=== PATIENT | male | born 1990 ===

== ENCOUNTER 2017-03-23 18:30 | Emergency (ER) | payer OTHER ==
[2017-03-23 18:39] VITALS: RESP 18
--- NOTE | 2017-03-23 20:19 | C.PDOC ---
History Of Present Illness Patient is a 27 year old male who presents complaining of dizziness and palpitations over the past few weeks, which occasionally wakes him from sleeping. States he quit smoking a few weeks ago and has been attempting to eat healthier. He denies any chest pain, shortness of breath, fever, chills, nausea , or vomiting. Patient speaking in complete sentences. Time Seen by Provider: 03/23/17 20:18 Chief Complaint (Nursing): Dizziness/Lightheaded History Per: Patient History/Exam Limitations: no limitations Onset/Duration Of Symptoms: Days Current Symptoms Are (Timing): Still Present Activity At Onset Of Symptoms: Lying Associated Symptoms Preceding Syncopal Episode: No Predromal Symptoms (Sudden Onset) Seizure Or Post-ictal Symptoms: None Fall Associated With With Symptoms: No Severity: Moderate Pain Scale Rating Of: 4 Recent travel outside of the [place]: No - Symptoms Of CVA Recent Aspirin Use: No Current Coumadin Use?: No Recent Head Trauma: No Past Medical History Reviewed: Historical Data, Nursing Documentation, Vital Signs Vital Signs: Last Vital Signs Temp 98.5 F 03/23/17 23:02 Pulse 83 03/23/17 23:02 Resp 18 03/23/17 23:02 BP 122/80 03/23/17 23:02 Pulse Ox 100 03/23/17 23:02 - Medical History PMH: No Chronic Diseases Surgical History: No Surg Hx Family History: States: No Known Family Hx - Social History Hx Alcohol Use: No Hx Substance Use: Yes - Immunization History Hx Tetanus Toxoid Vaccination: Yes (5 YEARS) Hx Influenza Vaccination: No Hx Pneumococcal Vaccination: No Review Of Systems Constitutional: Negative for: Fever, Chills Cardiovascular: Positive for: Palpitations. Negative for: Chest Pain Respiratory: Negative for: Shortness of Breath Gastrointestinal: Negative for: Nausea, Vomiting Neurological: Positive for: Dizziness. Negative for: Weakness, Headache Physical Exam - Physical Exam Appears: Non-toxic, No Acute Distress Skin: Warm, Dry Head: Normacephalic Eye(s): bilateral: Normal Inspection Oral Mucosa: Moist Throat: No Erythema Neck: Trachea Midline, Supple Chest: Symmetrical, No Tenderness Cardiovascular: Rhythm Regular Respiratory: No Rales, No Rhonchi, No Wheezing Gastrointestinal/Abdominal: Soft, No Tenderness, No Distention Back: Normal Inspection Extremity: Normal ROM Extremity: Bilateral: Atraumatic Neurological/Psych: Oriented x3, Normal Speech Gait: Steady ED Course And Treatment - Laboratory Results Result Diagrams: 03/23/17 21:10 03/23/17 21:10 ECG: Interpreted By Me, Viewed By Me ECG Rhythm: Sinus Rhythm (73), Nonspecific Changes O2 Sat by Pulse Oximetry: 99 (RA) Pulse Ox Interpretation: Normal - Radiology CXR: Interpreted by Me, Viewed By Me CXR Interpretation: No: Infiltrates, Fracture, Pnemothorax Progress Note: Will work up with EKG, blood work with cardiac enzymes, UDS, and UA. Reevaluation Time: 23:04 Reassessment Condition: Improved Disposition Counseled Patient/Family Regarding: Studies Performed, Diagnosis, Need For Followup - Disposition Referrals: [facility] at [facility] [Outside] [facility] [Outside] Disposition: HOME/ ROUTINE Disposition Time: 20:19 Condition: FAIR Instructions: Palpitations (ED) Forms: [employer] (Persian) - Clinical Impression Clinical Impression: Palpitations - Scribe Statement The provider has reviewed the documentation as recorded by the Scribe (Maryjane Griggs) Provider Attestation: All medical record entries made by the Scribe were at my direction and personally dictated by me. I have reviewed the chart and agree that the record accurately reflects my personal performance of the history, physical exam, medical decision making, and the department course for this patient. I have also personally directed, reviewed, and agree with the discharge instructions and disposition.
[2017-03-23 21:15] LABS: BASO # 0.1 K/uL (0.0-0.2); EOS # 0.1 K/uL (0.0-0.7); EOS % 1.3 % (0.0-4.0); HEMOGLOBIN 15.9 g/dL (12.0-18.0); LYMPH # 2.4 K/uL (1.0-4.3); MEAN CELL VOLUME 88.6 fL (80.0-94.0); MEAN CORPUSCULAR HEMOGLOBIN 30.3 pg (27.0-31.0); MEAN CORPUSCULAR HGB CONC 34.2 g/dL (33.0-37.0); MEAN PLATELET VOLUME 9.5 fL (7.2-11.7); MONO # 0.6 K/uL (0.0-0.8); MONO % 5.9 % (0.0-10.0); NEUT # 7.5 K/uL (1.8-7.0); NEUT % 69.8 % (50.0-75.0); RBC 5.24 Mil/uL (4.40-5.90); RED CELL DISTRIBUTION WIDTH 13.2 % (11.5-14.5); WHITE BLOOD COUNT 10.8 K/uL (4.8-10.8)
[2017-03-23 21:25] LABS: INR 1.2
[2017-03-23 21:26] LABS: ALB/GLOB RATIO 1.2 (1.0-2.1); ALBUMIN 4.6 g/dL (3.5-5.0); ALT/SGPT 72 U/L (21-72); AST/SGOT 23 U/L (17-59); BLOOD UREA NITROGEN 10 mg/dL (9-20); CALCIUM 9.2 mg/dl (8.6-10.4); GFR AFRICAN-AMERICAN > 60; GFR NON-AFRICAN AMERICAN > 60
[2017-03-23 21:48] LABS: URINE BILIRUBIN NEGATIVE (NEGATIVE); URINE CLARITY Clear (Clear); URINE COLOR Straw (YELLOW); URINE GLUCOSE (UA) NORMAL (Normal); URINE LEUKOCYTE ESTERASE NEG Leu/uL (Negative); URINE PROTEIN NEGATIVE (NEGATIVE); URINE UROBILINOGEN NORMAL mg/dL (0.2-1.0)
[2017-03-23 21:51] LABS: URINE BLOOD NEGATIVE (NEGATIVE)
[2017-03-23 22:12] LABS: BARBITURATES, UR NEGATIVE (NEGATIVE); BENZODIAZEPINES, UR NEGATIVE (NEGATIVE); OPIATES, UR NEGATIVE (NEGATIVE); PHENCYCLIDINE, UR NEGATIVE (NEGATIVE)
[2017-03-23 23:03] VITALS: BP 122/80; PULSE 83; TEMP 98.5
[2017-03-23 23:05] VITALS: O2SAT 99
--- NOTE | 2017-03-24 08:44 | RAD ---
Chest x-ray two views History: Palpitations. Comparison: None available. Findings: No focal infiltrate or effusion. Heart size within normal limits. Impression: No focal infiltrate or effusion.
--- NOTE | 2017-03-26 12:26 | CARD ---
APPROVED REPORT EKG Measurement Heart [id number] NC 164P46 [id number] <Conclusion> Normal sinus rhythm Normal ECG
== END 2017-03-23 23:12 | disposition home or self-care (01) ==
LOC: C.ER 18:30
DX: R00.2 Palpitations (principal)

== ENCOUNTER 2017-05-19 11:13 | Emergency (ER) | payer SELFPAY ==
[2017-05-19 11:20] VITALS: TEMP 98.1; O2SAT 100
--- NOTE | 2017-05-19 11:23 | PCM.RRT ---
LIGHTING ADVISER Nurses Assessment - Situation Date: 05/19/17 Time LIGHTING ADVISER was called: 10:52 LIGHTING ADVISER Responder Arrival Time:: 10:54 LIGHTING ADVISER Location:: Laboratory (phlebotomy) LIGHTING ADVISER Reason for Call: Looks Sicker (dizziness) - Vital Signs Vital Signs: BP: 102/72 HR: 64 Glucose: 98 - Time LIGHTING ADVISER Ended Time LIGHTING ADVISER Ended: 11:00 I.Reason for LIGHTING ADVISER - A) Acute Change in Patient: (Select all that apply): Staff member or family is worried about patient - Neurological Status (Select all that apply): Alert, Responsive, Oriented, Verbal, Follows Commands - Constitutional Appears: No Acute Distress - Head Head Exam: ATRAUMATIC, NORMOCEPHALIC - Eyes Eye Exam: EOMI, Normal appearance - Respiratory Exam Respiratory Exam: Clear to Ausculation Bilateral. absent: Rales, Rhonchi, Wheezes - Cardiovascular Exam Cardiovascular Exam: REGULAR RHYTHM, +S1, +S2 - GI/Abdominal Exam GI & Abdominal Exam: Soft, Normal Bowel Sounds. absent: Tenderness - Neurological Exam Neurological Exam: Alert, Awake, CN II-XII Intact, Oriented x3 - Extremities Exam Extremities Exam: absent: Pedal Edema Plan - Assessment of Findings&Treatment Plan Rapid response called for this 27 year old male with history of HTN. Patient was getting blood drawn when he felt dizzy and pale. He was given some juice and felt better. Patient was transferred to the emergency department.
[2017-05-19] MEDS ORDERED: Sodium Chloride 0.9% 1,000 ML IV ONE (11:30)
--- NOTE | 2017-05-19 11:37 | C.PDOC ---
History Of Present Illness 27 yo male w/PMHx of HTN was brought from outpatient lab after had vasovagal episode, while drawing blood. Pts ts, " felt dizzy, diaphoretic, nausea, while she was drawing my blood". At present time, pt reports feeling much better. Otherwise, pt denies syncope, headache, visual changes, focal deficits, CP, SOB , dyspnea, palpitation, abd. pain, V/D, UTI sx. A the time of evaluation, pt appears comfortable, not in nay apparent distress. Time Seen by Provider: 05/19/17 11:20 Chief Complaint (Nursing): Dizziness/Lightheaded History Per: Patient Past Medical History Reviewed: Historical Data, Nursing Documentation, Vital Signs Vital Signs: Last Vital Signs Temp 98.1 F 05/19/17 11:19 Pulse 59 L 05/19/17 11:19 Resp 20 05/19/17 11:19 BP 119/69 05/19/17 11:19 Pulse Ox 100 05/19/17 13:03 - Medical History PMH: HTN Family History: States: No Known Family Hx - Social History Hx Tobacco Use: No Hx Alcohol Use: No Hx Substance Use: Yes - Immunization History Hx Tetanus Toxoid Vaccination: Yes (5 YEARS) Hx Influenza Vaccination: No Hx Pneumococcal Vaccination: No Review Of Systems Except As Marked, All Systems Reviewed And Found Negative. Constitutional: Negative for: Fever, Chills Eyes: Negative for: Vision Change ENT: Negative for: Ear Discharge, Nose Discharge, Throat Pain, Throat Swelling Cardiovascular: Negative for: Chest Pain, Palpitations Respiratory: Negative for: Cough, Shortness of Breath, Wheezing Gastrointestinal: Negative for: Nausea, Vomiting, Abdominal Pain Genitourinary: Negative for: Dysuria Musculoskeletal: Negative for: Neck Pain, Back Pain Skin: Negative for: Rash Neurological: Positive for: Dizziness. Negative for: Weakness, Numbness, Altered Mental Status, Headache Physical Exam - Physical Exam Appears: Well, Non-toxic, No Acute Distress Skin: Normal Color, Warm, Dry, No Rash Head: Normacephalic Eye(s): bilateral: PERRL Nose: No Flaring, No Discharge Oral Mucosa: Moist, No Drooling Throat: No Drooling Neck: Trachea Midline, Supple Cardiovascular: Rhythm Regular, No Friction Rub, No Murmur, No JVD, Other ((-) carotid bruits B/L) Respiratory: No Decreased Breath Sounds, No Accessory Muscle Use, No Stridor, No Wheezing Gastrointestinal/Abdominal: Soft, No Tenderness, No Distention, No Guarding Back: No CVA Tenderness Extremity: Normal ROM, No Pedal Edema, No Deformity, No Swelling Neurological/Psych: Oriented x3, Normal Speech, Normal Cognition, Cerebellar Signs, Normal Motor, Normal Sensation, Normal Reflexes ED Course And Treatment - Laboratory Results Result Diagrams: 05/19/17 11:55 05/19/17 11:55 Lab Interpretation: Normal ECG: Interpreted By Me, Viewed By Me () ECG Rhythm: Sinus Rhythm Interpretation Of ECG: Sinus oliver@57/min, NAD, T wave inversion in III, no acute ST-T changes. O2 Sat by Pulse Oximetry: 100 Pulse Ox Interpretation: Normal - Radiology CXR: Interpreted by Me, Viewed By Me CXR Interpretation: Yes: No Acute Disease Progress Note: Pt was OBS in ED for 2 hours and reports moderate improvement in sx. On re-evaluation, pt is aferile, hemodynamicaly stable. PulseOx 100% RA. ENT: no acute findings. neck: Supple, (-) meninegal sign, (-) carotid bruits, ( -) JVD. Lungs: CTA B/L, BS equal B/L. CVS: (+)S1S2, reg, (-) murmur. Abd: benign,(-) guarding, (-) rebound. Back: (-) CVA tenderness. Neurologicaly intact. Blood work review and appeas without acute abnormalities. Troponin (-) . EKG, CXR- normal study. Pt has clinical findings c/w near-syncope r/o vasovagal episode s/p phlebotomy. Patient advisedon and ref. to f/u with PMD, Card. in 1-2 days for re-eavl. return to ED if any worsening or new changes. Disposition Counseled Patient/Family Regarding: Studies Performed, Diagnosis, Need For Followup - Disposition Referrals: [facility] at [facility] [Outside] Disposition: HOME/ ROUTINE Disposition Time: 13:02 Condition: STABLE Additional Instructions: Follow up with PMD in 1-2 days for re-evaluation. Return to ED if any worsening or new changes. Instructions: Vasovagal Response (DC) Forms: [employer] (Swedish) - Clinical Impression Clinical Impression: Near syncope, Vasovagal episode
[2017-05-19 11:59] LABS: BASO # 0.1 K/uL (0.0-0.2); BASO % 1.3 % (0.0-2.0); EOS # 0.1 K/uL (0.0-0.7); EOS % 1.3 % (0.0-4.0); HEMOGLOBIN 15.2 g/dL (12.0-18.0); LYMPH # 1.9 K/uL (1.0-4.3); LYMPH % 26.4 % (20.0-40.0); MEAN CELL VOLUME 88.1 fL (80.0-94.0); MEAN CORPUSCULAR HEMOGLOBIN 30.3 pg (27.0-31.0); MEAN CORPUSCULAR HGB CONC 34.4 g/dL (33.0-37.0); MONO # 0.4 K/uL (0.0-0.8); MONO % 5.7 % (0.0-10.0); NEUT # 4.8 K/uL (1.8-7.0); NEUT % 65.3 % (50.0-75.0); NRBC % 0.1 % (0.0-2.0); RBC 5.03 Mil/uL (4.40-5.90); RED CELL DISTRIBUTION WIDTH 13.1 % (11.5-14.5); WHITE BLOOD COUNT 7.4 K/uL (4.8-10.8)
[2017-05-19 12:11] LABS: BLOOD UREA NITROGEN 16 mg/dL (9-20); GFR AFRICAN-AMERICAN > 60; GFR NON-AFRICAN AMERICAN > 60; INR 1.2
--- NOTE | 2017-05-19 13:52 | RAD ---
PROCEDURE: CHEST RADIOGRAPH, 1 VIEW HISTORY: near-syncope COMPARISON: 03/23/2017. FINDINGS: LUNGS: The lungs are well inflated and clear. PLEURA: No pneumothorax or pleural fluid seen. CARDIOVASCULAR: Normal. OSSEOUS STRUCTURES: No significant abnormalities. VISUALIZED UPPER ABDOMEN: Normal. OTHER FINDINGS: None. IMPRESSION: No active pulmonary disease.
[2017-05-19 16:11] VITALS: BP 122/71; PULSE 72; RESP 18
--- NOTE | 2017-05-20 22:36 | CARD ---
APPROVED REPORT EKG Measurement Heart [id number] MS 176P23 [id number] <Conclusion> Sinus bradycardia Otherwise normal ECG
== END 2017-05-19 16:11 | disposition home or self-care (01) ==
LOC: C.ER 11:13
DX: R55 Syncope and collapse (principal)
CPT/HCPCS: 71045; 80048; 82948; 84484; 85025; 85610; 85730; 93005; 96360; 99285; J7040

== ENCOUNTER 2018-01-02 19:24 | Emergency (ER) | payer OTHER, SELFPAY ==
--- NOTE | 2018-01-02 19:45 | C.PDOC ---
History Of Present Illness 27 year old male presents to the ED for evaluation. 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 Patient reports feeling dizzy, blurry vision and some left arm weakness. However patient reports symptoms have resolved since now feeling anxious. Patient denies fever, chills, CP, SOB, palpitations, rash, injury, fall, trauma. Time Seen by Provider: 01/02/18 19:45 Chief Complaint (Nursing): Weakness/Neurological Deficit History Per: Patient History/Exam Limitations: no limitations Onset/Duration Of Symptoms: Hrs Current Symptoms Are (Timing): Better Activity At Onset Of Symptoms: Sitting Associated Symptoms Preceding Syncopal Episode: No Predromal Symptoms (Sudden Onset) Seizure Or Post-ictal Symptoms: None Fall Associated With With Symptoms: No Recent travel outside of the [place]: No Additional History Per: Patient Past Medical History Reviewed: Historical Data, Nursing Documentation, Vital Signs Vital Signs: Last Vital Signs Temp 98.6 F 01/02/18 19:37 Pulse 78 01/02/18 19:37 Resp 20 01/02/18 19:37 BP 144/88 01/02/18 19:37 Pulse Ox 99 01/02/18 19:37 - Medical History PMH: HTN Surgical History: No Surg Hx Family History: States: No Known Family Hx - Social History Hx Tobacco Use: No Hx Alcohol Use: No Hx Substance Use: Yes - Immunization History Hx Tetanus Toxoid Vaccination: Yes (5 YEARS) Hx Influenza Vaccination: No Hx Pneumococcal Vaccination: No Review Of Systems Constitutional: Negative for: Fever, Chills Eyes: Positive for: Vision Change Cardiovascular: Negative for: Chest Pain, Palpitations Respiratory: Negative for: Shortness of Breath Gastrointestinal: Negative for: Nausea, Vomiting, Abdominal Pain Skin: Negative for: Rash Neurological: Positive for: Weakness. Negative for: Headache, Dizziness Physical Exam - Physical Exam Appears: Non-toxic, No Acute Distress Skin: Warm, Dry Head: Normacephalic Eye(s): bilateral: Normal Inspection, PERRL, EOMI Neck: Supple Chest: Symmetrical Cardiovascular: Rhythm Regular Respiratory: No Rales, No Rhonchi, No Wheezing Gastrointestinal/Abdominal: Soft, No Tenderness, No Guarding, No Rebound Extremity: Bilateral: Atraumatic, Normal Color And Temperature, Normal ROM Neurological/Psych: Oriented x3, Normal Speech, Normal Cognition, Other (non focal ) Gait: Steady ED Course And Treatment - Laboratory Results Result Diagrams: 01/02/18 20:15 01/02/18 20:00 ECG: Interpreted By Me, Viewed By Me ECG Rhythm: Sinus Rhythm, Nonspecific Changes O2 Sat by Pulse Oximetry: 99 (ON RA) Pulse Ox Interpretation: Normal - Radiology CXR: Interpreted by Me, Viewed By Me CXR Interpretation: No: Infiltrates, Fracture, Pnemothorax - CT Scan/US CT head Other Rad Studies (CT/US): Read By Radiologist, Radiology Report Reviewed CT/US Interpretation: EXAM: CT Head without Intravenous Contrast. CLINICAL HISTORY: R.o bleed. TECHNIQUE: Axial computed tomography images of the head/brain without intravenous contrast. 0.00 mGy-cm. COMPARISON: None provided. FINDINGS: BRAIN. No acute intraparenchymal hemorrhage. No mass lesion. No CT evidence for acute territorial infarct. No midline shift or extra- axial collections. VENTRICLES: No hydrocephalus. Cavum septum pellucidum and cavum vergae. ORBITS: The orbits are unremarkable. SINUSES AND MASTOIDS: The paranasal sinuses and mastoid air cells are clear. BONES: No fracture. SOFT TISSUES: Unremarkable. IMPRESSION: No acute intracranial abnormality. . Electronically signed on Jan 02, 2018 8:49:00 PM EST by: Mychal Ballesteros M.D., ARINA Certified By ABR & CBCCT. Fellowship Trained MRI and CT Specialist Progress Note: Plan: - CT head. - EKG. - Labs. - CXR. - UA Reevaluation Time: 21:45 Reassessment Condition: Improved NIHSS Stroke Scale 2 - Date/Time Evaluation Performed Date Performed: 01/02/18 Time Performed: 20:00 When Was NIHSS Performed: Baseline - How Severe is the Stroke Level of Consciousness: 0=Alert LOC to Questions: 0=Both comments correct LOC to commands: 0=Obeys both correctly Best Gaze: 0=Normal Visual: 0=No visual loss Facial: 0=Normal Motor Arm - Left: 0=No drift Motor Arm - Right: 0=No drift Motor Leg - Left: 0=No drift Motor Leg - Right: 0=No drift Limb Ataxia: 0=Absent Sensory: 0=Normal Best Language: 0=No aphasia Dysarthia: 0=Normal articulation Extinction & Inattention (Neglect): 0=Normal, no object Score: 0 Disposition Counseled Patient/Family Regarding: Studies Performed, Diagnosis, Need For Followup - Disposition Referrals: [facility] [Outside] [facility] [Outside] Disposition: HOME/ ROUTINE Disposition Time: 19:45 Condition: FAIR Additional Instructions: Please return if symptoms recur Instructions: Anxiety, Adult (DC) Forms: [email or web address] (Tamazight) - Clinical Impression Clinical Impression: Anxiety - Scribe Statement The provider has reviewed the documentation as recorded by the Scribe Melvin Bro All medical record entries made by the Scribe were at my direction and personally dictated by me. I have reviewed the chart and agree that the record accurately reflects my personal performance of the history, physical exam, medical decision making, and the department course for this patient. I have also personally directed, reviewed, and agree with the discharge instructions and disposition.
[2018-01-02 20:09] LABS: BASO # 0.1 K/uL (0.0-0.2); BASO % 1.3 % (0.0-2.0); EOS # 0.1 K/uL (0.0-0.7); EOS % 1.1 % (0.0-4.0); HEMOGLOBIN 15.3 g/dL (12.0-18.0); LYMPH # 2.1 K/uL (1.0-4.3); LYMPH % 21.9 % (20.0-40.0); MEAN CELL VOLUME 88.3 fL (80.0-94.0); MEAN CORPUSCULAR HEMOGLOBIN 29.9 pg (27.0-31.0); MEAN CORPUSCULAR HGB CONC 33.8 g/dL (33.0-37.0); MEAN PLATELET VOLUME 9.2 fL (7.2-11.7); MONO # 0.4 K/uL (0.0-0.8); MONO % 4.5 % (0.0-10.0); NEUT # 6.9 K/uL (1.8-7.0); NEUT % 71.2 % (50.0-75.0); RBC 5.11 Mil/uL (4.40-5.90); RED CELL DISTRIBUTION WIDTH 13.7 % (11.5-14.5); WHITE BLOOD COUNT 9.7 K/uL (4.8-10.8)
[2018-01-02 20:17] LABS: URINE BILIRUBIN NEGATIVE (NEGATIVE); URINE CLARITY Clear (Clear); URINE COLOR Yellow (YELLOW); URINE GLUCOSE (UA) NORMAL (Normal); URINE LEUKOCYTE ESTERASE NEG Leu/uL (Negative); URINE PROTEIN NEGATIVE (NEGATIVE); URINE UROBILINOGEN NORMAL mg/dL (0.2-1.0)
[2018-01-02 20:25] LABS: URINE BLOOD TRACE (NEGATIVE)
[2018-01-02 20:30] LABS: INR 1.2; PROTHROMBIN TIME 13.6 SECONDS (9.7-12.2)
[2018-01-02 20:33] LABS: ALB/GLOB RATIO 1.4 (1.0-2.1); ALBUMIN 4.5 g/dL (3.5-5.0); ALT/SGPT 28 U/L (21-72); AST/SGOT 14 U/L (17-59); BLOOD UREA NITROGEN 9 mg/dL (9-20); CALCIUM 9.4 mg/dl (8.6-10.4); GFR NON-AFRICAN AMERICAN > 60
[2018-01-02 20:45] LABS: BARBITURATES, UR NEGATIVE (NEGATIVE); BENZODIAZEPINES, UR NEGATIVE (NEGATIVE); OPIATES, UR NEGATIVE (NEGATIVE)
[2018-01-02 20:53] LABS: PHENCYCLIDINE, UR NEGATIVE (NEGATIVE)
[2018-01-03 01:09] VITALS: BP 129/76; PULSE 68; RESP 18; TEMP 98; O2SAT 99
--- NOTE | 2018-01-03 08:01 | RAD ---
Date of service: 01/02/2018 PROCEDURE: CHEST RADIOGRAPH, 1 VIEW HISTORY: SOB COMPARISON: 05/19/2017 FINDINGS: LUNGS: Clear. PLEURA: No pneumothorax or pleural fluid seen. CARDIOVASCULAR: No aortic atherosclerotic calcification present. Normal. OSSEOUS STRUCTURES: No significant abnormalities. VISUALIZED UPPER ABDOMEN: Normal. OTHER FINDINGS: None. IMPRESSION: No active disease. No interval pathology appreciated
--- NOTE | 2018-01-03 09:07 | CT ---
Date of service: 01/02/2018 PROCEDURE: CT HEAD WITHOUT CONTRAST. HISTORY: Left-sided facial numbness. COMPARISON: None available. TECHNIQUE: Axial computed tomography images were obtained through the head/brain without intravenous contrast. Radiation dose: Total exam DLP = 1226.92 mGy-cm. This CT exam was performed using one or more of the following dose reduction techniques: Automated exposure control, adjustment of the mA and/or kV according to patient size, and/or use of iterative reconstruction technique. FINDINGS: HEMORRHAGE: No intracranial hemorrhage. BRAIN: No mass effect or edema. No atrophy or chronic microvascular ischemic changes. Cavum septum pellucidum and vergae. Punctate hypodensities in the bilateral basal ganglia may represent prominent perivascular spaces. VENTRICLES: Unremarkable. No hydrocephalus. CALVARIUM: Unremarkable. PARANASAL SINUSES: Unremarkable as visualized. No significant inflammatory changes. 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 MASTOID AIR CELLS: Unremarkable as visualized. No inflammatory changes. OTHER FINDINGS: None. IMPRESSION: No acute intracranial abnormality. If symptoms persist, consider correlation with MRI. A preliminary report was generated at 8:49 p.m. on 01/02/[address] Mychal Ballesteros from [employer].
== END 2018-01-02 21:56 | disposition home or self-care (01) ==
LOC: C.ER 19:24
DX: F41.9 Anxiety disorder, unspecified (principal)

== ENCOUNTER 2018-03-22 02:31 | Emergency (ER) | payer OTHER ==
--- NOTE | 2018-03-22 02:59 | C.PDOC ---
History Of Present Illness Patient states that for the last month or so, he has been feeling short of breath. States that he feels like he has to work to breath, but he is speaking in complete sentences, in no distress,. Oxygen saturation is 100% on room air. Slightly anxious. No f/c/n/v. No trauma, no prolonged sitting/trips. Time Seen by Provider: 03/22/18 02:56 Chief Complaint (Nursing): Shortness Of Breath History Per: Patient History/Exam Limitations: no limitations Onset/Duration Of Symptoms: Days (35) Current Symptoms Are (Timing): Still Present Initiating Event: Other (unknown) Exacerbating Factor(s): Other Current Respiratory Medications: See Home Med List Severity: None Associated Symptoms: Anxiety. denies: Fever, Chills, Sweating Reports Recently: Seen In ED, Treated By A Physician Recent travel outside of the [place]: No Additional History Per: Patient Past Medical History Reviewed: Historical Data, Nursing Documentation, Vital Signs Vital Signs: Last Vital Signs Temp 97.6 F 03/22/18 02:40 Pulse 71 03/22/18 02:40 Resp 20 03/22/18 02:45 BP 153/105 H 03/22/18 02:40 Pulse Ox 100 03/22/18 02:45 - Medical History PMH: HTN Family History: States: No Known Family Hx - Social History Hx Tobacco Use: No Hx Alcohol Use: No Hx Substance Use: Yes - Immunization History Hx Tetanus Toxoid Vaccination: Yes (5 YEARS) Hx Influenza Vaccination: No Hx Pneumococcal Vaccination: No Review Of Systems Constitutional: Negative for: Fever, Chills Cardiovascular: Negative for: Chest Pain Respiratory: Positive for: Shortness of Breath Gastrointestinal: Negative for: Abdominal Pain Musculoskeletal: Negative for: Back Pain Skin: Negative for: Rash Neurological: Negative for: Weakness Psych: Positive for: Anxiety Physical Exam - Physical Exam Appears: Non-toxic, No Acute Distress Skin: Warm, Dry Oral Mucosa: Moist Tongue: Normal Appearing Throat: No Erythema Neck: Supple Chest: Symmetrical Cardiovascular: Rhythm Regular Respiratory: No Rales, No Rhonchi, No Wheezing Gastrointestinal/Abdominal: Soft, No Tenderness Extremity: Normal ROM Neurological/Psych: Oriented x3 Gait: Steady ED Course And Treatment - Laboratory Results Result Diagrams: 03/22/18 03:12 03/22/18 03:12 ECG: Interpreted By Me, Viewed By Me ECG Rhythm: Sinus Rhythm (63), Nonspecific Changes O2 Sat by Pulse Oximetry: 100 Pulse Ox Interpretation: Normal Medical Decision Making Medical Decision Making: Upon provider reevaluation patient is feeling better, is medically stable, and requires no further treatment in the ED at this time. Patient will be discharged home with Rx for zithromax and albuterol . Counseling was provided and all questions were answered regarding diagnosis and need for follow up with the referred clinic. There is agreement to discharge plan. Return if symptoms persist or worsen. Disposition Counseled Patient/Family Regarding: Studies Performed, Diagnosis, Need For Followup, Rx Given - Disposition Referrals: [facility] [Outside] Disposition: HOME/ ROUTINE Disposition Time: 02:58 Condition: FAIR Additional Instructions: Please return if symptoms recur Prescriptions: Albuterol HFA [Ventolin HFA 90 mcg/actuation (8 g)] 2 puff IH [id number] #1 puff Azithromycin [Zithromax Tri-Kd] 500 mg PO DAILY #3 tablet Instructions: Acute Bronchitis, Adult (DC) Forms: [employer] (Pashto) - Clinical Impression Clinical Impression: Bronchitis
[2018-03-22 03:15] LABS: BASO # 0.1 K/uL (0.0-0.2); BASO % 1.3 % (0.0-2.0); EOS # 0.2 K/uL (0.0-0.7); EOS % 2.3 % (0.0-4.0); HEMOGLOBIN 14.5 g/dL (12.0-18.0); LYMPH # 3.4 K/uL (1.0-4.3); LYMPH % 38.6 % (20.0-40.0); MEAN CELL VOLUME 90.4 fL (80.0-94.0); MEAN CORPUSCULAR HEMOGLOBIN 30.8 pg (27.0-31.0); MEAN CORPUSCULAR HGB CONC 34.1 g/dL (33.0-37.0); MONO # 0.5 K/uL (0.0-0.8); NEUT # 4.5 K/uL (1.8-7.0); NEUT % 51.8 % (50.0-75.0); NRBC % 0.1 % (0.0-2.0); RBC 4.71 Mil/uL (4.40-5.90); WHITE BLOOD COUNT 8.8 K/uL (4.8-10.8)
[2018-03-22 03:26] LABS: ALB/GLOB RATIO 1.9 (1.0-2.1); ALBUMIN 4.5 g/dL (3.5-5.0); ALT/SGPT 19 U/L (21-72); AST/SGOT 9 U/L (17-59); BLOOD UREA NITROGEN 10 mg/dL (9-20); CALCIUM 8.3 mg/dl (8.6-10.4); GFR NON-AFRICAN AMERICAN > 60
[2018-03-22 03:42] LABS: ABG ALLEN TEST ES; ARTERIAL BLOOD GAS HCO3 27.4 mmol/L (21-28); ARTERIAL BLOOD GAS O2 SAT 99.5 % (95-98); ARTERIAL BLOOD GAS PCO2 42 mm/Hg (35-45); ARTERIAL BLOOD GAS PH 7.43 (7.35-7.45); ARTERIAL BLOOD GAS PO2 100 mm/Hg (80-100); ARTERIAL BLOOD GAS TCO2 29.2 mmol/L (22-28)
[2018-03-22 06:26] VITALS: BP 121/75; PULSE 90; RESP 20; TEMP 98.3; O2SAT 98
--- NOTE | 2018-03-22 09:34 | CT ---
CT chest HISTORY: Shortness of breath. Cough. COMPARISON: None available. TECHNIQUE: Multiple contiguous axial images were performed through the chest without the use of intravenous contrast. Subsequently, sagittal and coronal reformatted images were obtained. This CT exam was performed using one or more of the following dose reduction techniques: Automated exposure control, adjustment of the mA and/or kV according to patient size, and/or use of iterative reconstruction technique. Findings: Right lung: Grossly preserved. Left lung: Grossly preserved. Trachea thru central airways are patent. Mild peribronchial thickening. Bilateral gynecomastia. No significant axillary adenopathy. Thyroid is preserved. Few shotty mediastinal lymph nodes. If there is concern for pulmonary embolism, correlation with a CT chest pulmonary angiogram is recommended. No pleural or pericardial effusions. Prominent liver. Degenerative changes in the spine. Impression: 1. If there is concern for pulmonary embolism, correlation with a CT chest pulmonary angiogram is recommended. 2. Mild peribronchial thickening. Clinical correlation. 3. Additional findings as above. A preliminary report was generated at 5:30 a.m. on 03/22/[address] Jorge Luis Strauss from [employer].
--- NOTE | 2018-03-23 12:32 | CARD ---
APPROVED REPORT Date of service: 03/22/2018 EKG Measurement Heart [id number] DC 162P33 [id number] <Conclusion> Normal sinus rhythm Normal ECG
== END 2018-03-22 06:26 | disposition home or self-care (01) ==
LOC: C.ER 02:31
DX: J40 Bronchitis, not specified as acute or chronic (principal); I10 Essential (primary) hypertension